=== PATIENT | female | born 1945 | race Caucasian/White ===

== ENCOUNTER 2022-08-03 15:48 | Outpatient (CLI) | payer MEDICARE, SELFPAY ==
[2022-08-03 13:08] LABS: Chloride* 105 mmol/L (96-114); Potassium* 3.9 mmol/L (3.6-5.1); Sodium* 143 mmol/L (135-149)
[2022-08-03 13:11] LABS: Blood Urea Nitrogen* 15 mg/dL (7-30); Carbon Dioxide* 28 mmol/L (20-32); Cholesterol* 153 mg/dL (90-199); Creatinine* 0.8 mg/dL (0.5-1.5); Estimated Glomerular Filt Rate 77 ml/min; Glucose* 98 mg/dL (60-115)
[2022-08-03 13:12] LABS: Calcium* 9.9 mg/dL (8.4-10.6); HDL Cholesterol* 49 mg/dL (>=50); LDL Cholesterol Calculated 76 mg/dL (<100); Triglycerides* 142 mg/dL (40-149)
[2022-08-03 13:26] LABS: Vitamin D 25 Hydroxy* 23 ng/mL (30-80)
== END 2022-08-03 15:49 | disposition home or self-care (01) ==
PROVIDERS: PCP Internal Medicine; Visit Provider Internal Medicine
DX: E78.5 Hyperlipidemia, unspecified (principal); I10 Essential (primary) hypertension; M85.80 Other specified disorders of bone density and structure, unspecified site
CPT/HCPCS: 80048; 80061; 82306

== ENCOUNTER 2022-11-11 15:06 | Outpatient (CLI) | payer MEDICARE, SELFPAY ==
--- NOTE | 2022-11-11 15:20 | CRLHL7_ITS ---
For Patients: As a result of the Century Cures Act, medical imaging exams and procedure reports are released immediately into your electronic medical record. You may view this report before your referring provider. If you have questions, please contact your health care provider. BILATERAL SCREENING MAMMOGRAM WITH COMPUTER-AIDED DETECTION AND TOMOSYNTHESIS TECHNIQUE: CC and MLO views were obtained. These mammographic images have been obtained using full-field digital technique. These mammographic images were interpreted with the benefit of computer-aided detection. Breast Tomosynthesis was used in this interpretation. COMPARISON FILM: 04/25/21, 06/15/17, 11/01/15. FINDINGS: The breasts are heterogeneously dense, which may obscure small masses IMPRESSION: There is no radiographic evidence for malignancy. ASSESSMENT: BI-RADS Category 1: Negative RECOMMENDATION: Routine screening mammogram in 1 year. A lay language report of this examination will be provided to the patient. Corwin Leija M.D. Diagnostic/Nuclear Medicine Radiologist [email or web address] SURJIT/Dictated by: Corwin Leija MD @ 11/12/2022 8:25:00 AM (Electronically Signed)
== END 2022-11-11 15:07 | disposition home or self-care (01) ==
LOC: MAMMO 15:07
PROVIDERS: PCP Internal Medicine; Visit Provider Internal Medicine
DX: Z12.31 Encounter for screening mammogram for malignant neoplasm of breast (principal); R92.2 Inconclusive mammogram
CPT/HCPCS: 77063; 77067

== ENCOUNTER 2022-11-18 14:57 | Outpatient (CLI) | payer MEDICARE, SELFPAY ==
--- NOTE | 2022-11-18 15:00 | CRLHL7_ITS ---
For Patients: As a result of the Century Cures Act, medical imaging exams and procedure reports are released immediately into your electronic medical record. You may view this report before your referring provider. If you have questions, please contact your health care provider. DXA BONE MINERAL DENSITY STUDY Current height (in): 63.0. Weight (lb): 173.0. Menopause age: 39. Ethnicity: White. 1. Have you had a previous hip or vertebral fracture? No. 2. Have you had any fractures during your adult life which did not result from significant trauma (e.g., auto accident)? No. 3. Did either of your parents have a hip fracture? No. 4. Do you smoke? No. 5. Have you ever taken Glucocorticoids? No. 6. Do you have rheumatoid arthritis? No. 7. Do you have secondary osteoporosis? No. 8. Do you drink 3 or more alcoholic drinks per day? No. 9. Are you being treated for osteoporosis? No. 10. Have you ever taken any of the following medications: Actonel, Evista, Fosamax, Miacalcin, Reclast, Boniva, Forteo, HRT (i.e. estrogen/hormone therapy), Protelos, Prolia, Vitamin D, Calcium, other ??? please specify. ANSWER: Yes, vitamin D. 11. Do you have any of the following medical conditions: Anorexia or bulimia, asthma or emphysema, end stage renal disease, hyperparathyroidism, any seizure disorders, cancer, inflammatory bowel diseases, hysterectomy, other ??? please specify. ANSWER: Yes, hysterectomy. 12. What was your maximum height (inches)? 64. 13. Do you perform weight bearing exercise regularly? No. 14. Do you regularly consume dairy products? Yes. 15. Do you drink caffeinated beverages? Yes. 16. At what age did your period start? 15. 17. Are you premenopausal? No. 18. How many full term pregnancies have you had? 0. 19. Have you ever missed your period for more than 6 months in a row (not including or menopause)? No. TECHNIQUE: Bone mineral density study was performed using the [employer]. FINDINGS: The results of the study expressed as bone mineral density (BMD) are as follows: Lumbar spine L1 to L4: BMD: 0.983 g/cm2. T-score: -0.6. Z-score: 1.9. Neck Left: BMD: 0.672 g/cm2. T-score: -1.6. Z-score: 0.5. Right: BMD: 0.714 g/cm2. T-score: -1.2. Z-score: 0.9. Total Left: BMD: 0.834 g/cm2. T-score: -0.9. Z-score: 0.9. Right: BMD: 0.901 g/cm2. T-score: -0.3. Z-score: 1.5. IMPRESSION: Osteopenia. *Comparison exams done prior to 02/2020 were performed on different unit, [facility] [facility]. COMPARISON: Compared with scan of 02/08/2014, the bone mineral density has decreased by 5.1 percent at the spine and increased by 1.3 percent at the hips. FRAX 10-year Fracture Risk Major Osteoporotic Fracture: 12 percent Hip Fracture: 2.5 percent Reported Risk Factors: [place] () Neck BMD=0.672, BMI=30.6 Vadim Arita M.D. Diagnostic Radiologist [email or web address] SID/moe / be/Dictated by: Vadim Arita MD @ 11/18/2022 4:36:00 PM (Electronically Signed)
== END 2022-11-18 14:58 | disposition home or self-care (01) ==
LOC: RAD 14:58
PROVIDERS: PCP Internal Medicine; Visit Provider Internal Medicine
DX: Z13.820 Encounter for screening for osteoporosis (principal); M85.89 Other specified disorders of bone density and structure, multiple sites; M81.0 Age-related osteoporosis without current pathological fracture
CPT/HCPCS: 77080

== ENCOUNTER 2023-04-28 11:22 | Outpatient (CLI) | payer MEDICARE, SELFPAY | END 2023-04-28 11:23 | disposition home or self-care (01) | LOC: NFLDREF 11:24 | PROVIDERS: PCP Internal Medicine; Visit Provider Family Medicine | DX: Z00.00 Encounter for general adult medical examination without abnormal findings (principal); I10 Essential (primary) hypertension; E78.5 Hyperlipidemia, unspecified; R10.9 Unspecified abdominal pain | CPT/HCPCS: 80053 ==

== ENCOUNTER 2023-08-09 11:10 | Outpatient (CLI) | payer MEDICARE, SELFPAY | END 2023-08-09 11:11 | disposition home or self-care (01) | LOC: NFLDREF 20:10 | PROVIDERS: PCP Family Medicine; Referring Provider Family Medicine; Visit Provider Family Medicine | DX: E55.9 Vitamin D deficiency, unspecified (principal); E78.5 Hyperlipidemia, unspecified; I10 Essential (primary) hypertension; M85.80 Other specified disorders of bone density and structure, unspecified site; F41.1 Generalized anxiety disorder | CPT/HCPCS: 80053; 80061; 82306; 84443 ==

== ENCOUNTER 2023-08-20 12:36 | Outpatient (CLI) | payer MEDICARE, SELFPAY ==
--- NOTE | 2023-08-20 12:42 | CRLHL7_ITS ---
For Patients: As a result of the Century Cures Act, medical imaging exams and procedure reports are released immediately into your electronic medical record. You may view this report before your referring provider. If you have questions, please contact your health care provider. Indication: unspecified abdominal pain Technique: CT Abdomen/Pelvis w/ 82cc [id number] Please note that all CT scans at this facility use dose modulation, iterative reconstruction, and/or weight-based dosing when appropriate to reduce radiation dose to as low as reasonably achievable. Comparison: None Findings: Lung bases are clear. Small simple cysts are present within the liver. No suspicious intrahepatic mass. Gallbladder is normal. The pancreas and common bile duct appear normal. Normal spleen. Incidental splenules are present. Mild thickening of the adrenal glands without nodularity. Simple renal cysts are present left kidney. No hydronephrosis. Atherosclerotic changes. Incidental duodenal diverticula bladder normal. No pelvic mass. No mechanical obstruction. Mild sigmoid diverticulosis. No diverticulitis. No adenopathy. Upper limits of normal retroperitoneal lymph nodes are considered incidental. No fracture. Impression: No bowel obstruction or inflammatory change. No evidence of appendicitis or diverticulitis. Incidental intrahepatic cysts. Please note that all CT scans at this facility use dose modulation, iterative reconstruction, and/or weight-based dosing when appropriate to reduce radiation dose to as low as reasonably achievable. Dictated by Vadim Arita MD @ 08/22/2023 2:50:40 PM (Electronically Signed)
== END 2023-08-20 12:37 | disposition home or self-care (01) ==
LOC: CT 12:36
PROVIDERS: PCP Family Medicine; Visit Provider Family Medicine
DX: R10.9 Unspecified abdominal pain (principal); G89.29 Other chronic pain
CPT/HCPCS: 74177; Q9967

== ENCOUNTER 2023-11-11 11:10 | Outpatient (CLI) | payer MEDICARE, SELFPAY | END 2023-11-11 11:11 | disposition home or self-care (01) | LOC: NFLDREF 11-26 11:54 | PROVIDERS: PCP Family Medicine; Referring Provider Family Medicine; Visit Provider Family Medicine | DX: I10 Essential (primary) hypertension (principal); M85.80 Other specified disorders of bone density and structure, unspecified site; Z13.9 Encounter for screening, unspecified | CPT/HCPCS: 80053 ==

== ENCOUNTER 2024-07-31 11:12 | Outpatient (CLI) | payer MEDICARE, SELFPAY | END 2024-07-31 11:13 | disposition home or self-care (01) | LOC: NFLDREF 08-04 05:56 | PROVIDERS: PCP Family Medicine; Referring Provider Family Medicine; Visit Provider Family Medicine | DX: E78.5 Hyperlipidemia, unspecified (principal); I10 Essential (primary) hypertension; M81.0 Age-related osteoporosis without current pathological fracture; M85.80 Other specified disorders of bone density and structure, unspecified site | CPT/HCPCS: 80053; 80061; 82306 ==

== ENCOUNTER 2024-08-24 15:20 | Outpatient (CLI) | payer MEDICARE, SELFPAY ==
--- NOTE | 2024-08-24 15:20 | CRLHL7_ITS ---
For Patients: As a result of the Century Cures Act, medical imaging exams and procedure reports are released immediately into your electronic medical record. You may view this report before your referring provider. If you have questions, please contact your health care provider. BILATERAL DIGITAL SCREENING MAMMOGRAM WITH COMPUTER-AIDED DETECTION AND TOMOSYNTHESIS CLINICAL HISTORY: Routine screening exam. COMPARISON: 11/11/22, 04/25/21, 06/15/17. TECHNIQUE: Digital mammogram in CC and MLO projections including computer-aided detection (CAD). Tomosynthesis was used in this interpretation. BREAST COMPOSITION: There are scattered areas of fibroglandular density. FINDINGS: RIGHT Breast: No suspicious findings. LEFT Breast: Focal asymmetric density is present within medial LEFT breast 8 cm from the nipple. IMPRESSION: LEFT breast asymmetry/mass. RECOMMENDATIONS: Additional mammographic views of the LEFT breast including 3D spot compression CC/MLO. LEFT breast ultrasound may also be required. The [facility] will contact the patient. A lay language report of this examination will be provided to the patient. BI-RADS Category 0: Incomplete: Need Additional Imaging Evaluation Dictated by Vadim Arita MD @ 08/25/2024 10:35:00 AM jj/Dictated by: Vadim Arita MD @ 08/25/2024 10:35:00 AM (Electronically Signed)
== END 2024-08-24 15:21 | disposition home or self-care (01) ==
LOC: MAMMO 15:21
PROVIDERS: PCP Family Medicine; Visit Provider Family Medicine
DX: Z12.31 Encounter for screening mammogram for malignant neoplasm of breast (principal); N63.20 Unspecified lump in the left breast, unspecified quadrant
CPT/HCPCS: 77063; 77067

== ENCOUNTER 2024-09-04 07:37 | Outpatient (CLI) | payer MEDICARE, SELFPAY ==
--- NOTE | 2024-09-04 07:45 | CRLHL7_ITS ---
For Patients: As a result of the Cures Act, medical imaging exams and procedure reports are released immediately into your electronic medical record. You may view this report before your referring provider. If you have questions, please contact your health care provider. LEFT DIAGNOSTIC MAMMOGRAM WITH COMPUTER-AIDED DETECTION AND TOMOSYNTHESIS LEFT BREAST ULTRASOUND CLINICAL HISTORY: LEFT breast mass/asymmetry. COMPARISON: 08/24/2024. TECHNIQUE: Digital LEFT mammogram in two projections. These mammographic images were interpreted with the benefit of computer-aided detection. Tomosynthesis was used in this interpretation. Real-time ultrasound imaging of LEFT breast with imaging documentation. Scanning was performed by both the technologist and the radiologist. BREAST COMPOSITION: There are scattered areas of fibroglandular density. FINDINGS: 3D spot compression CC/MLO LEFT breast mammogram images submitted. Persistent spiculated lesion within the upper inner quadrant LEFT breast. No suspicious calcifications. Targeted LEFT breast ultrasound performed. At 10 o`clock 8 cm from the nipple, there is an ill-defined hyperechoic lesion with irregular margins and cystic areas which measures 1.3 x 0.5 x 0.9 cm. IMPRESSION: Suspicious mass LEFT breast 10 o`clock, 8 cm from the nipple, measuring 1.3 cm. RECOMMENDATIONS: Ultrasound-guided core needle biopsy. BI-RADS Category 4: Suspicious A lay language report of this examination will be provided to the patient. Dictated by Vadim Arita MD @ 09/04/2024 8:33:25 AM /sp SP/Dictated by: Vadim Arita MD @ 09/04/2024 8:33:00 AM (Electronically Signed)
--- NOTE | 2024-09-04 08:15 | CRLHL7_ITS ---
For Patients: As a result of the Century Cures Act, medical imaging exams and procedure reports are released immediately into your electronic medical record. You may view this report before your referring provider. If you have questions, please contact your health care provider. PLEASE SEE LEFT BREAST DIAGNOSTIC MAMMOGRAM PERFORMED SAME DAY. CRL:sp SP/Dictated by: Vadim Arita MD @ 09/04/2024 8:48:00 AM (Electronically Signed)
== END 2024-09-04 07:38 | disposition home or self-care (01) ==
LOC: MAMMO 07:37
PROVIDERS: PCP Family Medicine; Visit Provider Family Medicine
DX: N63.20 Unspecified lump in the left breast, unspecified quadrant (principal); R92.8 Other abnormal and inconclusive findings on diagnostic imaging of breast
CPT/HCPCS: 76642; 77065; G0279

== ENCOUNTER 2024-09-12 07:55 | Outpatient (CLI) | payer MEDICARE, SELFPAY ==
--- NOTE | 2024-09-12 08:15 | CRLHL7_ITS ---
For Patients: As a result of the Century Cures Act, medical imaging exams and procedure reports are released immediately into your electronic medical record. You may view this report before your referring provider. If you have questions, please contact your health care provider. ULTRASOUND-GUIDED BREAST BIOPSY AND POST-BIOPSY DIGITAL MAMMOGRAM FOR BIOPSY MARKER PLACEMENT, 09/12/2024 CLINICAL HISTORY: Indeterminate nodule. COMPARISON STUDIES: 09/04/2024, 08/24/2024. TECHNIQUE: Real-time ultrasound with image documentation was used for targeting the breast lesion. Core biopsy specimens were obtained using an automated gun with an 18-gauge biopsy needle. Post-biopsy CC and ML digital mammograms were obtained to document position of the biopsy marker. CONSENT and TIME OUT: The procedure, risks, and alternatives were explained to the patient and a consent was signed. [place] Protocol was followed including pre-procedure verification that relevant information/documentation was available, reviewed and properly matched to the patient; consent accurate and complete; and equipment and supplies available. Time Out was conducted just prior to starting procedure to verify the four required elements: patient identity, correct side/site marked (if applicable), procedure, relevant images/results properly labeled and displayed (if applicable). PROCEDURE: The patient was positioned supine on the ultrasound table. The breast was prepped with ChloraPrep. 8 cc of 1 percent lidocaine used for local anesthesia. Core samples were obtained. A sterile metal biopsy clip was placed percutaneously to ranjan the lesion position within the breast. The specimens were placed in 10% formalin and sent to the pathology department. Pressure was held on the biopsy site until all bleeding subsided. The skin incision was closed with Steri-Strips. An ice pack was positioned over the biopsy site. Post-biopsy instructions were reviewed with the patient, and a written copy was given to her. LATERALITY: LEFT breast. LESION: Heterogeneous solid nodule measuring 13 x 5 x 9 millimeters at 10 o`clock, 8 cm from the nipple. SUSPICION FOR MALIGNANCY: High. NUMBER OF SAMPLES: 5. BIOPSY CLIP SHAPE: Oval. PROXIMITY OF CLIP TO TARGET: Within the lesion. IMPRESSION: Ultrasound-guided breast biopsy. When the pathology report is available, an addendum to this report will be made. ACR not applicable Dictated by Vadim Arita MD @ 09/12/2024 9:18:58 AM NATTY/cassie DW/Dictated by: Vadim Arita MD @ 09/12/2024 9:18:00 AM (Electronically Signed)
--- NOTE | 2024-09-12 09:00 | CRLHL7_ITS ---
For Patients: As a result of the Century Cures Act, medical imaging exams and procedure reports are released immediately into your electronic medical record. You may view this report before your referring provider. If you have questions, please contact your health care provider. SEE ULTRASOUND-GUIDED LEFT BREAST BIOPSY PERFORMED SAME DAY CRL:abby mora/Dictated by: Vadim Arita MD @ 09/12/2024 9:19:00 AM (Electronically Signed)
== END 2024-09-12 07:56 | disposition home or self-care (01) ==
LOC: US 07:56
PROVIDERS: PCP Family Medicine; Visit Provider Family Medicine
DX: N63.20 Unspecified lump in the left breast, unspecified quadrant (principal); R92.8 Other abnormal and inconclusive findings on diagnostic imaging of breast
CPT/HCPCS: 19083; 77065; 88305; 88341; 88342; 88360; 88361; A4648; A4649; J2003

== ENCOUNTER 2024-09-22 09:22 | Outpatient (CLI) | payer MEDICARE, SELFPAY ==
--- NOTE | 2024-09-22 09:15 | CRLHL7_ITS ---
For Patients: As a result of the Century Cures Act, medical imaging exams and procedure reports are released immediately into your electronic medical record. You may view this report before your referring provider. If you have questions, please contact your health care provider. Indication: Left Breast IDC, evaluate for lymph node metastasis Technique: Grayscale and color Doppler ultrasound of the left axilla performed. Comparison: 09/04/2024 Findings: Normal left axillary lymph nodes are present without cortical thickening. Normal internal vascularity and normal central fatty faheem. Lymph nodes measure 10 x 8 x 19 millimeters, 13 x 9 x 23 millimeters and 13 x 5 x 9 millimeters. Cortex measures 2.5 millimeters or less. Impression: Normal left axillary lymph nodes. Dictated by Vadim Arita MD @ 09/22/2024 10:54:11 AM (Electronically Signed)
== END 2024-09-22 09:23 | disposition home or self-care (01) ==
LOC: US 09:23
PROVIDERS: PCP Family Medicine; Visit Provider Surgery
DX: C50.912 Malignant neoplasm of unspecified site of left female breast (principal); Z17.0 Estrogen receptor positive status [ER+]; N63.20 Unspecified lump in the left breast, unspecified quadrant
CPT/HCPCS: 76882

== ENCOUNTER 2024-10-05 08:56 | Day surgery (SDC) | payer MEDICARE, SELFPAY ==
[2024-10-05] VITALS (7 sets, daily range): BP systolic 83–126; BP diastolic 52–100; PULSE 71–84; RESP 16; TEMP 36.7–36.8; O2SAT 94–100; BMI 29.3
[2024-10-05] MEDS: LACTATED RINGERS 500 ML 500 ML 100 ML IV (09:00)
[2024-10-05] MEDS: SODIUM CHLORIDE 0.9 % (FLUSH) 10 ML SYRINGE IVF (09:32)
--- NOTE | 2024-10-05 09:46 | W.PM.H&PU ---
History & Physical Update History & Physical Update H&P Reviewed and patient assessed: No changes noted
--- NOTE | 2024-10-05 10:15 | CRLHL7_ITS ---
For Patients: As a result of the Century Cures Act, medical imaging exams and procedure reports are released immediately into your electronic medical record. You may view this report before your referring provider. If you have questions, please contact your health care provider. ULTRASOUND-GUIDED LEFT BREAST WIRE LOCALIZATION INDICATION: LEFT-sided breast cancer. Ultrasound-guided wire localization prior to surgical excision. PROCEDURE: Informed consent was obtained. Benefits and risks were discussed. The patient agreed to proceed. [place] protocol was followed. TIME-OUT conducted just prior to starting procedure confirmed patient identity, site/side, procedure, patient position, and availability of correct equipment. Pause for cause was performed. An ultrasound-guided biopsy from 09/12/2024 was reviewed. Clip placement was performed at that time. Utilizing sterile technique and 1 percent lidocaine for local anesthetic, a 7 cm Kopans needle/wire device was advanced easily into the lesion within the superior medial LEFT breast 10 o`clock position 8 cm from the nipple. A previously placed biopsy clip was easily visualized, and a wire was advanced along the inferior edge of this clip without difficulty. The patient tolerated the procedure well. No immediate complications. Post procedure mammogram is pending. IMPRESSION: Technically successful ultrasound-guided wire localization of lesion in the upper inner LEFT breast. ACR not applicable Dictated by: Corwin Leija MD @10/05/2024 11:25:16 AM /Dictated by: Corwin Leija MD @ 10/05/2024 11:25:00 AM (Electronically Signed)
--- NOTE | 2024-10-05 11:00 | CRLHL7_ITS ---
For Patients: As a result of the Cures Act, medical imaging exams and procedure reports are released immediately into your electronic medical record. You may view this report before your referring provider. If you have questions, please contact your health care provider. POST-LOCALIZATION LEFT BREAST WIRE PLACEMENT INDICATION: Follow-up ultrasound-guided wire localization of the LEFT breast. TECHNIQUE: Postprocedure LEFT breast CC and MLO views were obtained. FINDINGS: The Kopans wire passes along the inferior edge of the biopsy clip. This is just adjacent to the clip. The barbed end of the wire is properly positioned. IMPRESSION: Adequate placement of the Kopans wire as described within the upper inner quadrant of the LEFT breast. ACR not applicable Dictated by: Corwin Leija MD @10/05/2024 11:26:31 AM jj/Dictated by: Corwin Leija MD @ 10/05/2024 11:26:00 AM (Electronically Signed)
[2024-10-05] MEDS: CLINDAMYCIN 900 MG/50 ML-D5W IVPB (11:44)
[2024-10-05] MEDS: LIDOCAINE 1% MDV 9 ML INJECTION (11:45)
[2024-10-05] MEDS: BUPIVACAINE 0.25% 30 ML 20 ML INJECTION (11:45)
--- NOTE | 2024-10-05 11:53 | CRLHL7_ITS ---
For Patients: As a result of the Cures Act, medical imaging exams and procedure reports are released immediately into your electronic medical record. You may view this report before your referring provider. If you have questions, please contact your health care provider. X-RAY LEFT BREAST SPECIMEN INDICATION: Post lumpectomy specimen. TECHNIQUE: Single radiographic image of the LEFT breast lumpectomy specimen. FINDINGS: The lumpectomy specimen contains the biopsy lesion in question as well as the biopsy marker clip and the Kopan`s wire. IMPRESSION: Specimen radiograph as described. Dictated by: Corwin Leija MD @10/05/2024 12:38:39 PM /sp SP/Dictated by: Corwin Leija MD @ 10/05/2024 12:38:00 PM (Electronically Signed)
--- NOTE | 2024-10-05 12:52 | PM.GSPRC ---
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 Post-op diagnosis: Same Type of Procedure: Wire localized left lumpectomy Indications: The patient is a 79-year-old female who was found to have a concerning left breast mass on screening mammography. This was biopsied and found to be invasive ductal carcinoma, ER MT positive, HER2 negative. We discussed options for treatment and she elected to proceed with lumpectomy. She underwent preoperative evaluation of her axilla with an ultrasound which was negative for gross metastatic disease. Given her age, negative imaging and favorable tumor subtype, I offered and she elected to omit operative staging with sentinel lymph node biopsy. Procedure Description: After discussing the risks and benefits of the procedure, the patient signed informed consent.? The operative site was marked and the patient was brought to the operating room and placed on the operating table in supine position.? Care was taken to pad the patient's pressure points.?? The patient was then given sedation by anesthesia.?? The operative site was then prepped and draped in the usual sterile fashion.? A time-out was then performed. Local anesthetic was injected into the skin and subcutaneous tissue overlying the mass. Mass was faintly palpable in the 10 o'clock position. In because it was palpable, I had concerned that the anterior margin may be close, therefore I created an incision slightly below the palpable area, with anticipation of potentially removing the skin as anterior margin if necessary. Dissection was taken down into the subcutaneous fat. The wire was pulled through the incision and, staying just deep to the dermis, I dissected anteriorly over the area of the mass. Then, using the wire to guide me, I dissected around the wire taking a swath of normal appearing breast tissue. This was done with cautery. Dissection was taken down to the chest wall, taking muscle fascia. The mass was then removed and inked for orientation and margins. This was sent to mammography. Mammography revealed the mass, the clip and the wire within the specimen. Pathology then examined the specimen for gross margins. It was felt that the anterior/superior margin as suspected was close, within 1-2 mm grossly. I then marked out an ellipse at the superior aspect of the incision, and after injecting local anesthetic created an incision, excising the anterior skin overlying the with area of the mass. I then took a margin of subcutaneous and breast tissue anteriorly and extending along the superior aspect of the lumpectomy cavity. This was again inked for orientation. Pathology felt this appeared to be negative grossly. Hemostasis appeared excellent at this point. The lumpectomy cavity margins were clipped, marking for adjuvant radiation. The wound was then closed with 3-0 Vicryl dermal 4-0 Monocryl subcuticular sutures. Sterile dressings were then applied. Insurance sponge and needle counts were correct at the end the case. The patient was then woken and transported to the PACU in stable condition. ? The patient tolerated the procedure well. Findings: 1. Lumpectomy specimen containing wire and mass seen on mammography 2. Left lumpectomy excised with close margins anteriorly/superiorly grossly. 3. Additional skin and superior margin reexcised with final margins grossly negative. Anesthesia: MAC Surgeon: Anabela Nassar MD Estimated blood loss (mL): 10 Additional Specimen Information: 1. Left breast mass/lumpectomy 2. Additional anterior superior margin Condition: stable Disposition: same day
--- NOTE | 2024-10-05 12:56 | P.ANES_ITS ---
Anesthesia Charges Start Date/Time Anesthesia Start Date: 10/05/24 Anesthesia Start Time: 11:24 Stop Date/Time Anesthesia Stop Date: 10/05/24 Anesthesia Stop Time: 13:01 Summary Extremes of Age - Over 70 or under 1: LABOR/EXCAVATOR Coding CPT Codes CPT Codes: ANESTH SKIN EXT/PER/ATRUNK - 55394 ([id number]) P2 - PATIENT W/MILD SYST DISEASE, QX - LABOR/EXCAVATOR SVC W/ MD MED DIRECTION, QK - PROMOS EXECUTIVE PRODUCER 2-4 CNCRNT ANES PROC Additional Codes: Summary - Extremes of Age - Over 70 or under 1: LABOR/EXCAVATOR ([id number])
--- NOTE | 2024-10-05 12:56 | W.ANESCHARGE ---
Anesthesia Charges Start Date/Time Anesthesia Start Date: 10/05/24 Anesthesia Start Time: 11:24 Stop Date/Time Anesthesia Stop Date: 10/05/24 Anesthesia Stop Time: 13:01 Summary Extremes of Age - Over 70 or under 1: PRINTER SMALL PRINT SHOP Coding CPT Codes CPT Codes: ANESTH SKIN EXT/PER/ATRUNK - 77973 ([id number]) P2 - PATIENT W/MILD SYST DISEASE, QX - PRINTER SMALL PRINT SHOP SVC W/ MD MED DIRECTION, QK - ARTIFICIAL BREEDING DISTRIBUTOR 2-4 CNCRNT ANES PROC Additional Codes: Summary - Extremes of Age - Over 70 or under 1: PRINTER SMALL PRINT SHOP ([id number])
--- NOTE | 2024-10-05 13:13 | W.ANESCHARGE ---
Anesthesia Charges Start Date/Time Anesthesia Start Date: 10/05/24 Anesthesia Start Time: 11:24 Stop Date/Time Anesthesia Stop Date: 10/05/24 Anesthesia Stop Time: 13:01 Summary Extremes of Age - Over 70 or under 1: MDA Coding CPT Codes CPT Codes: ANESTH SKIN EXT/PER/ATRUNK - 39872 ([id number]) QK - HAND RUG BRAIDER 2-4 CNCRNT ANES PROC, QX - DISASTER RECOVERY CONSULTANT SVC W/ MD MED DIRECTION, P2 - PATIENT W/MILD SYST DISEASE Additional Codes: Summary - Extremes of Age - Over 70 or under 1: MDA ([id number])
== END 2024-10-05 14:53 | disposition home or self-care (01) ==
PROVIDERS: PCP Family Medicine; Visit Provider Surgery
PROC: (CPT 19125; principal; 2024-10-05 11:00)
PROC: (CPT 19125; 2024-10-05 11:00)
DX: C50.212 Malignant neoplasm of upper-inner quadrant of left female breast (principal); Z17.0 Estrogen receptor positive status [ER+]; Z17.32 Human epidermal growth factor receptor 2 negative status; Z17.21 Progesterone receptor positive status
CPT/HCPCS: 19125; 00400; 19285; 76942; 77065; 88305; 88307; 99100; J2003; C1769; J0330; J0665; J0736; J2250; J2371; J2704; J3010; J3490; J7120

== ENCOUNTER 2024-11-02 14:49 | Outpatient (CLI) | payer MEDICARE, SELFPAY ==
--- NOTE | 2024-11-02 15:00 | CRLHL7_ITS ---
For Patients: As a result of the Century Cures Act, medical imaging exams and procedure reports are released immediately into your electronic medical record. You may view this report before your referring provider. If you have questions, please contact your health care provider. XR DXA Bone Mineral Density (BMD) Current height (in): 63.0. Weight (lb): 173.0. Menopause age: 39. Ethnicity: White. 1. Have you had a previous hip or vertebral fracture? No. 2. Have you had any fractures during your adult life which did not result from significant trauma (e.g., auto accident)? No. 3. Did either of your parents have a hip fracture? No. 4. Do you smoke? No. 5. Have you ever taken Glucocorticoids? No. 6. Do you have rheumatoid arthritis? No. 7. Do you have secondary osteoporosis? Yes. 8. Do you drink 3 or more alcoholic drinks per day? No. 9. Are you being treated for osteoporosis? No. 10. Have you ever taken any of the following medications: Actonel, Evista, Fosamax, Miacalcin, Reclast, Boniva, Forteo, HRT (i.e. estrogen/hormone therapy), Protelos, Prolia, Vitamin D, Calcium, other ??? please specify. ANSWER: Yes, Vitamin D, Calcium. 11. Do you have any of the following medical conditions: Anorexia or bulimia, asthma or emphysema, end stage renal disease, hyperparathyroidism, any seizure disorders, cancer, inflammatory bowel diseases, hysterectomy, other ??? please specify. ANSWER: Yes, Cancer, inflammatory bowel diseases, hysterectomy. 12. What was your maximum height (inches)? 64. 13. Do you perform weight bearing exercise regularly? No. 14. Do you regularly consume dairy products? Yes. 15. Do you drink caffeinated beverages? Yes. If female: 16. At what age did your period start? 15. 17. Are you premenopausal? No. 18. How many full term pregnancies have you had? 0. 19. Have you ever missed your period for more than 6 months in a row (not including or menopause)? No. TECHNIQUE: Bone mineral density study was performed using the [employer]. FINDINGS: The results of the study expressed as bone mineral density (BMD) are as follows: Lumbar spine L1 to L4: BMD: 0.963 g/cm2. T-score: -0.8. Z-score: 1.8. Neck Left: BMD: 0.678 g/cm2. T-score: -1.5 . Z-score: 0.7. Right: BMD: 0.721 g/cm2. T-score: -1.2 . Z-score: 1.1. Total Left: BMD: 0.923 g/cm2. T-score: -0.2 . Z-score: 1.8. Right: BMD: 0.953 g/cm2. T-score: 0.1 . Z-score: 2.0. IMPRESSION: Osteopenia. *Comparison exams done prior to 02/2020 were performed on different unit, [employer]. COMPARISON: Compared with scan of 11/28/2022, the bone mineral density has decreased by 2.0 percent at the spine and increased by 8.1 percent at the hip. Compared with scan of 02/08/2014, the bone mineral density has decreased by 5.1 percent at the spine and increased by 1.3 percent at the hip. Nena Sousa M.D. Diagnostic Radiologist [email or web address] Transcribed: 1:25 p.m. JR/Dictated by: Nena Sousa MD @ 11/03/2024 8:06:00 AM (Electronically Signed)
== END 2024-11-02 14:50 | disposition home or self-care (01) ==
LOC: RAD 14:50
PROVIDERS: PCP Family Medicine; Visit Provider Internal Medicine Hematology & Oncology
DX: C50.212 Malignant neoplasm of upper-inner quadrant of left female breast (principal); M85.89 Other specified disorders of bone density and structure, multiple sites; Z17.0 Estrogen receptor positive status [ER+]
CPT/HCPCS: 77080

== ENCOUNTER 2025-03-22 13:30 | Outpatient (RCR) | payer MEDICARE, SELFPAY ==
--- NOTE | 2024-10-18 13:10 | ONC.NURNOTE ---
1. Oncotype Dx recurrence score testing requested via online portal. 2. Radiation Oncology referral and records faxed to [facility]. They will call patient to schedule consult for sometime after 11/02 to allow for Oncotype results. 3. Patient will be called with Oncotype results. If chemo is not indicated, she will have follow up with oncology a few weeks after radiation is complete to review DEXA and discuss endocrine therapy.
--- NOTE | 2024-11-01 14:15 | ONC.NURNOTE ---
Oncotype results reviewed with Dr. Lamas. Patient informed that her recurrence score is 18 and she would not benefit from chemotherapy. Okay to proceed with radiation. We will plan to see her a few weeks after radiation to review her DEXA scan and discuss endocrine therapy. Patient verbalizes understanding.
--- NOTE | 2025-01-03 14:31 | ONC.NURNOTE ---
Message left for patient requesting return call for an updated on her condition. Wanting to see how she is tolerating her endocrine therapy and if she has any questions/concerns.
== END 2025-04-14 23:59 | disposition home or self-care (01) ==
LOC: CCIC 13:30
PROVIDERS: PCP Family Medicine; Visit Provider Physician Assistant
DX: C50.912 Malignant neoplasm of unspecified site of left female breast (principal); Z17.0 Estrogen receptor positive status [ER+]; N64.4 Mastodynia; M85.80 Other specified disorders of bone density and structure, unspecified site; Z79.811 Long term (current) use of aromatase inhibitors
CPT/HCPCS: 99202; 99205; 99214; G0463

== ENCOUNTER 2025-07-26 14:48 | Outpatient (CLI) | payer MEDICARE, SELFPAY ==
--- NOTE | 2025-08-21 09:45 | W.PM.SLEEP ---
Sleep Study Details Details Interpreting Provider: Paige Date of Sleep Study: 07/26/25 Sleep Study Details: STUDY TYPE:? Home unattended ? BMI:? 30.82 ORDERING PROVIDER:? Paige INDICATION:? Concern for sleep apnea ? SLEEP SUMMARY:? 640 minutes monitored RESPIRATORY SUMMARY:? AHI 25.3 per rule 1 8, 16.7 per CMS guideline. 3.8 central apnea index Low oxygen 83 6.2% of study oxygen less than 90% Snoring 100% PERIODIC LIMB MOVEMENTS OF SLEEP:? Not recorded CARDIAC:? Range 64-113, mean 75.4 beats per minute IMPRESSION:? Moderate obstructive sleep apnea RECOMMENDATION: AutoSet CPAP with close follow-up. Dental appliance is a potential option as well.
== END 2025-07-26 14:49 | disposition home or self-care (01) ==
PROVIDERS: PCP Family Medicine; Visit Provider Physician Assistant
DX: G47.33 Obstructive sleep apnea (adult) (pediatric) (principal)
CPT/HCPCS: 95806

== ENCOUNTER 2025-08-21 13:47 | Outpatient (CLI) | payer MEDICARE, SELFPAY ==
--- NOTE | 2025-08-21 14:00 | CRLHL7_ITS ---
For Patients: As a result of the Century Cures Act, medical imaging exams and procedure reports are released immediately into your electronic medical record. You may view this report before your referring provider. If you have questions, please contact your health care provider. Indication: WORSENING COUGH, WHEEZING Technique: CT Chest 75CC ISOVUE 370 intravenous contrast Please note that all CT scans at this facility use dose modulation, iterative reconstruction, and/or weight-based dosing when appropriate to reduce radiation dose to as low as reasonably achievable. Comparison: None Findings: There is an incidental colloid cyst within the right thyroid lobe which measures 5 millimeters. No mediastinal, hilar or axillary adenopathy within the visualized thorax. Postop changes to the left breast. Mild thickening of the adrenal glands without adrenal nodule. Incidental splenules are present adjacent to the spleen. There is a sub cm cyst within the left hepatic lobe and an additional cyst within the right hepatic lobe which measures 1.1 cm. Atherosclerotic changes. Degenerative subcortical cystic changes are present within the humeral head. No fracture. No intrinsic osseous lesion. Subpleural nodule left lower lobe measures 9 millimeters. Additional subpleural nodule right lower lobe measures 5 millimeters, images 53 and 55, respectively, series 7. These are considered incidental and not suspicious. No infiltrate, edema, effusion or pneumothorax. Mild bronchial mucous plugging noted within the left lower lobe, series 3, image 83. No airway lesion. Impression: Mild mucous plugging involving the left lower lobe. No suspicious pulmonary nodule. No acute infiltrate or fibrosis. No evidence of metastatic disease. Please note that all CT scans at this facility use dose modulation, iterative reconstruction, and/or weight-based dosing when appropriate to reduce radiation dose to as low as reasonably achievable. Dictated by Vadim Arita MD @ 08/21/2025 3:41:10 PM (Electronically Signed)
[2025-08-21 14:26] LABS: Creatinine* 1.1 mg/dL (0.5-1.5); Estimated Glomerular Filt Rate 51 ml/min
== END 2025-08-21 13:48 | disposition home or self-care (01) ==
LOC: CT 13:48
PROVIDERS: PCP Family Medicine; Visit Provider Internal Medicine Hematology & Oncology
DX: R05.9 Cough, unspecified (principal); R06.2 Wheezing
CPT/HCPCS: 36415; 71260; 82565; Q9967

== ENCOUNTER 2025-09-11 16:44 | Outpatient (CLI) | payer MEDICARE, SELFPAY ==
--- NOTE | 2025-09-11 17:00 | CRLHL7_ITS ---
For Patients: As a result of the Century Cures Act, medical imaging exams and procedure reports are released immediately into your electronic medical record. You may view this report before your referring provider. If you have questions, please contact your health care provider. INDICATION: BILATERAL SCREENING MAMMOGRAM, ASYMPTOMATIC 80 Y/O FEMALE COMPARISON: 08/24/2024, 11/11/2022, 04/25/2021 TECHNIQUE: Digital mammogram in CC and MLO projections including computer-aided detection (CAD) and tomosynthesis. BREAST COMPOSITION: The breasts are heterogeneously dense, which may obscure small masses. FINDINGS: No suspicious findings. ASSESSMENT: BI-RADS 2 Benign RECOMMENDATION: Annual screening mammogram. A lay language report of this examination will be provided to the patient. Dictated by: Vadim Arita MD @ 09/12/2025 11:55:13 (Electronically Signed)
== END 2025-09-11 16:45 | disposition home or self-care (01) ==
LOC: MAMMO 16:45
PROVIDERS: PCP Family Medicine; Visit Provider Internal Medicine Hematology & Oncology
DX: Z12.31 Encounter for screening mammogram for malignant neoplasm of breast (principal); R92.333 Mammographic heterogeneous density, bilateral breasts
CPT/HCPCS: 77063; 77067